=== PATIENT | female | born 1945 | race Caucasian/White ===

== ENCOUNTER 2017-07-20 08:08 | Day surgery (SDC) | payer OTHER, MEDICARE ==
[2017-07-19 15:22] VITALS: BMI 42.4
[2017-07-20] MEDS ORDERED: PROPOFOL 20 ML ONE ×2 (08:45)
[2017-07-20 10:31] VITALS: TEMP 97.8
[2017-07-20 11:43] VITALS: BP 159/50; PULSE 62
--- NOTE | 2017-07-21 16:41 | PATH ---
Surgical Pathology Report Patient Name: SEKOU BRADY [facility] Rec. #: [id number] /Age/Gender: 1945 (Age: 72) / F Account: [id number] Location: U-ENDOSCOPY Taken: 07/20/2017 Received: 07/20/2017 Reported: 07/21/2017 Physicians: Sfoia Portillo M.D. Specimen(s) Received A: BX ANASTOMOSIS B: BX GE JUNCTION C: POLYP DESCENDING COLON D: POLYP PROXIMAL TRANSVERSE E: BX CECAL POLYP F: BX EDEMATOUS SIGMOID Clinical History Ampullary cancer surveillance, adenomatous surveillance Hiatal hernia, patent Billroth II anastomosis, diverticulosis, colon polyps Final Diagnosis A. ANASTOMOSIS, BIOPSY: GASTRIC OXYNTIC MUCOSA WITH MILD CHRONIC GASTRITIS. IMMUNOHISTOCHEMICAL STAIN FOR H. PYLORI NEGATIVE. B. GASTROESOPHAGEAL (GE) JUNCTION, BIOPSY: SQUAMOUS MUCOSA WITH MILD REFLUX ESOPHAGITIS. NO COLUMNAR MUCOSA OR INTESTINAL METAPLASIA IDENTIFIED. C. DESCENDING COLON, POLYP, BIOPSY: HYPERPLASTIC POLYP. SEPARATE FRAGMENT OF GRANULATION TISSUE AND ACUTE INFLAMMATORY INFILTRATE CONSISTENT WITH ULCER BASE. D. PROXIMAL TRANSVERSE COLON, POLYP, BIOPSY: HYPERPLASTIC POLYP. E. CECUM, POLYP, BIOPSY: TUBULAR ADENOMA. F. SIGMOID COLON, EDEMATOUS, BIOPSY: HYPERPLASTIC POLYP. Electronically Signed Jazz Hong M.D. Gross Description A. Received in formalin, labeled "biopsy anastomosis" are 4 alexander, irregular portions of soft tissue ranging from 0.3-0.7 cm. in greatest dimension. The specimens are submitted in toto in one cassette. B. Received in formalin, labeled "biopsy GE junction" are 2 alexander, irregular portions of soft tissue averaging 0.3 cm. in greatest dimension. The specimens are submitted in toto in one cassette. C. Received in formalin, labeled "biopsy descending colon" are 3 alexander, irregular portions of soft tissue averaging 0.3 cm. in greatest dimension. The specimens are submitted in toto in one cassette. D. Received in formalin, labeled "biopsy proximal transverse colon" is a alexander, irregular portion of soft tissue measuring 0.2 cm. in greatest dimension. The specimen is submitted in toto in one cassette. E. Received in formalin, labeled "biopsy cecal polyp" are 3 alexander, irregular portions of soft tissue averaging 0.2 cm. in greatest dimension. The specimens are submitted in toto in one cassette. F. Received in formalin, labeled "biopsy edematous sigmoid" are 3 alexander, irregular portions of soft tissue ranging from 0.2-0.3 cm. in greatest dimension. The specimens are submitted in toto in one cassette. 07/20/201707/20/2017
== END 2017-07-20 11:43 | disposition home or self-care (01) ==
LOC: JASU-ENDO 08:08
PROVIDERS: ATTEND Internal Medicine Gastroenterology
PROC: 0DBL8ZX Excision of Transverse Colon, Via Natural or Artificial Opening Endoscopic, Diagnostic (ICD-10-PCS; 2017-07-20)
PROC: 0DBH8ZX Excision of Cecum, Via Natural or Artificial Opening Endoscopic, Diagnostic (ICD-10-PCS; 2017-07-20)
PROC: 0DBN8ZX Excision of Sigmoid Colon, Via Natural or Artificial Opening Endoscopic, Diagnostic (ICD-10-PCS; 2017-07-20)
PROC: 0DB38ZX Excision of Lower Esophagus, Via Natural or Artificial Opening Endoscopic, Diagnostic (ICD-10-PCS; 2017-07-20)
PROC: 0DBM8ZX Excision of Descending Colon, Via Natural or Artificial Opening Endoscopic, Diagnostic (ICD-10-PCS; principal; 2017-07-20 09:00)
DX: D12.0 Benign neoplasm of cecum (principal); D12.4 Benign neoplasm of descending colon; D12.3 Benign neoplasm of transverse colon; Z86.010 Personal history of colon polyps; K64.8 Other hemorrhoids; K63.89 Other specified diseases of intestine; K21.9 Gastro-esophageal reflux disease without esophagitis; K44.9 Diaphragmatic hernia without obstruction or gangrene; Z98.0 Intestinal bypass and anastomosis status; Z85.42 Personal history of malignant neoplasm of other parts of uterus; I10 Essential (primary) hypertension; E11.9 Type 2 diabetes mellitus without complications; E78.5 Hyperlipidemia, unspecified; I48.91 Unspecified atrial fibrillation; Z85.89 Personal history of malignant neoplasm of other organs and systems
CPT/HCPCS: 88305-TC; 88342-TC

== ENCOUNTER 2022-02-05 04:17 | Day surgery (SDC) | payer OTHER, MEDICARE ==
[2022-02-03 11:19] VITALS: BMI 36.8
[2022-02-05 12:25] VITALS: BP 138/82; PULSE 59; TEMP 98
== END 2022-02-05 13:03 | disposition home or self-care (01) ==
LOC: JASU-ENDO 04:17
PROVIDERS: ATTEND Internal Medicine Gastroenterology
PROC: 0DJD8ZZ Inspection of Lower Intestinal Tract, Via Natural or Artificial Opening Endoscopic (ICD-10-PCS; principal; 2022-02-05 10:00)
DX: Z12.11 Encounter for screening for malignant neoplasm of colon (principal); Z86.010 Personal history of colon polyps; K57.30 Diverticulosis of large intestine without perforation or abscess without bleeding; K63.89 Other specified diseases of intestine; K64.8 Other hemorrhoids
CPT/HCPCS: 88305-TC; 88342-TC